=== PATIENT | female | born 1960 | race Two or more races ===

== ENCOUNTER 2021-06-01 15:15 | Outpatient (REF) | payer BC, SELFPAY ==
[2021-06-01 17:02] LABS: Appearance Urine CLEAR; Color Urine YELLOW; Glucose Urine UA NEG (NEG); Leukocyte Esterase Urine NEG (NEG); Nitrite Urine NEG (NEG); PH 5.5 (5.0-8.0); Specific Gravity - Urine 1.025 (1.005-1.025); Urine Blood 1+ (NEG); Urine Ketones NEG (NEG); Urine Protein NEG (NEG-TRACE)
[2021-06-01 17:07] LABS: Alanine Aminotransferase 17 U/L (0-31); Albumin Level 4.2 g/dL (3.5-5.0); Alkaline Phosphatase 101 U/L (39-117); Anion Gap 9 (12-20); Aspartate Amino Transferase 14 U/L (5-31); Bilirubin Total 0.5 mg/dL (0.0-1.0); Blood Urea Nitrogen 17 mg/dL (9-16); Calcium 9.7 mg/dL (8.4-10.2); Carbon Dioxide 32 mmol/L (22-29); Chloride 106 mmol/L (96-108); Cholesterol 176 mg/dL; Estimated Glomerular Filt Rate > 60; Glucose Fasting 94 mg/dL (60-99); HDL Cholesterol 55 mg/dL; LDL Cholesterol Calculated 104 mg/dl; Potassium 4.5 mmol/L (3.3-5.1); Sodium 142 mmol/L (135-145); Total Protein 6.9 g/dL (6.5-8.0); Triglycerides 89 mg/dL
[2021-06-01 17:27] LABS: Vitamin D 25-OH Total 37.2 ng/mL (>30)
[2021-06-01 17:53] LABS: Hematocrit 43.7 % (37.0-47.0); Hemoglobin 14.1 g/dl (12.0-16.0); Mean Corpuscular HGB Conc 32.3 g/dl (31.0-35.0); Mean Corpuscular Hemoglobin 29.8 pg (27.0-33.0); Mean Corpuscular Volume 92.4 fL (80.0-98.0); Mean Platelet Volume 9.3 fL (9.4-12.3); Platelet Count 246 X10*3/uL (160-400); Red Blood Count 4.73 X10*6/uL (4.20-5.50); Red Cell Distribution Width 13.8 % (11.0-16.0)
[2021-06-01 18:01] LABS: RBC Urine 0-2 /HPF (0); Squamous Epithelial Cell Urine 2+ /LPF; WBC Urine 0-2 /HPF (0-4)
== END 2021-06-01 15:16 | disposition home or self-care (01) ==
LOC: HO.HMGCLDS 15:15
PROVIDERS: PCP Internal Medicine; Visit Provider Internal Medicine
DX: Z00.00 Encounter for general adult medical examination without abnormal findings (principal); E78.5 Hyperlipidemia, unspecified; E03.9 Hypothyroidism, unspecified
CPT/HCPCS: 36415; 80053; 80061; 81001; 82306; 85027

== ENCOUNTER → 2022-09-17 07:59 | Outpatient (REF) | payer BC, SELFPAY ==
--- NOTE | 2022-09-17 08:08 | CA_ITS ---
Transthoracic Echocardiogram Patient (Last, First, Middle): Serena Dixon, Gender: Female Date of : 1960 Age: 62 Procedure Date: 09/17/2022 Procedure Type: Transthoracic Echocardiogram Location: OP Height: 165. cm Weight: 123.83 kg BSA: 2.26 m2 Heart Rate: 72 bpm BP: 105 / 70 mmHg Incident Manager: ARSALAN Referring MD: Shiela Haley MD Symptoms: R01.1 - Cardiac murmur, unspecified Study Quality: Fair ECG Rhythm: Sinus Conclusions: - The left ventricular systolic function is normal. The calculated ejection fraction is 61% by biplane method. - There is mildly decreased right ventricular systolic function. - No obvious valvular pathology seen on this study. Findings Left Ventricle Normal left ventricular cavity size. There is mildly increased left ventricular wall thickness. The left ventricular systolic function is normal. The calculated ejection fraction is 61% by biplane method. There is no evidence of regional wall motion abnormalities. Evidence suggests grade I (mild) diastolic dysfunction. Strain not reliable due to poor endocardial definition. Right Ventricle Normal right ventricular cavity size. There is mildly decreased right ventricular systolic function. Atria Both atria are normal in size. Aortic Valve There is a normal trileaflet aortic valve. There is no aortic valve stenosis. There is trace (trivial) aortic valve regurgitation. Mitral Valve The mitral valve appears normal. There is mild mitral valve regurgitation. There is no mitral valve stenosis. Pulmonic Valve The pulmonic valve is likely normal. Tricuspid Valve There is no tricuspid valve regurgitation. There is no evidence of pulmonary hypertension. Great Vessels The asc aorta is normal in size. Venous The inferior vena cava is normal in size and collapses greater than 50% with inspiration. Pericardium/Pleural Prominent epicardial adipose tissue noted. There is no evidence of pericardial effusion. Prior Study Comparison No prior study available for comparison. Recommendations, Care & Conclusions No obvious valvular pathology seen on this study. Measurements 2D Linear Measurements IVSd: 1.19 0.6-0.9/0.6-1.0 cm LVIDd: 3.88 3.9-5.3/4.2-5.9 cm LVIDd Index: 1.72 2.4-3.2/2.2-3.1 cm/m2 LVIDs: 3.01 2.0-3.6 cm LVPWd: 1.05 0.7-1.1 cm LA Diam: 3.50 2.7-3.8/3.0-4.0 cm LAIDs Index: 1.55 1.5-2.3 cm/m2 LV Mass: 177.64 67-162/88-224 g LV Mass Index: 78.60 43-95/49-115 g/m2 LVOT Diam: 1.80 3.0+(-)1.3 cm 2D Systolic Function EF 4C: 64.90 >55% EF 2C: 56.40 >55% EF BiP: 60.90 >55% Mitral Valve MV Pk E: 0.90 MV PK A: 0.91 MV Decel Time: 284.00 E/A: 1.00 E'Lateral: 8.05 E'Medial: 5.33 E/E' Med: 16.90 E/E' Lat: 11.20 PHT: 83.00 MVA PHT: 2.65 Decel [place]: 3.17 Aortic Valve AoV Pk Efren: 1.50 AoV Mn Efren: 1.06 AoV VTI: 0.33 AoV Pk Grad: 9.00 Aov Mn Grad: 5.00 KATHLEEN Cont.VTI: 2.10 LVOT LVOT Pk Efren: 1.29 LVOT Mn Efren: 0.88 LVOT VTI: 0.27 LVOT Pk Grad: 7.00 LVOT Mn Grad: 4.00 LVOT Diam: 1.80 LVOT Area: 2.54 Diastolic Function MV Pk E: 0.90 MV Pk A: 0.91 E/A: 1.00 E'Medial: 5.33 E/E' Med: 16.90 E' Laterial: 8.05 E/E' Lat: 11.20 Right Ventricle TAPSE (mm): 16.90 TVS' Efren: 8.92 Tricuspid Valve RA Press: 3.00 Great Vessels Aorta Sinus of Valsalva: 3.10 2.0-3.5 cm Ao Asc: 3.30 2.1-3.4 cm Ao Arch: 3.30 Pulmonary Valve PV Pk Efren: 1.09 Peak PV Grad: 5.00 Updated in Other Vendor System with Status of Final Wayne Rangel MD electronically signed on 09/19/2022 1:01:38 PM with status of Final
== END ==
LOC: HO.CARD 07:59
PROVIDERS: PCP Internal Medicine; Visit Provider Internal Medicine
DX: R01.1 Cardiac murmur, unspecified (principal)
CPT/HCPCS: 93306

== ENCOUNTER 2023-06-16 08:13 | Outpatient (AMB) | payer BC, SELFPAY ==
[2023-06-16 08:31] VITALS: BP 122/80; PULSE 80; TEMP 36.8; O2SAT 98
--- NOTE | 2023-06-16 08:31 | MHC.OFFWIV ---
Intake Vital Signs 06/16/23 08:31 Height 5 ft 8 in BP 122/80 Blood Pressure Location Lt brachial Position Sitting Pulse 80 Pulse Source Pulse Oximeter Temp 98.2 F Temp Source Oral Pulse Oximetry (%) 98 Oxygen Delivery Method Room Air Intake Visit Reasons: EP, bilateral ear blockage ([phone]) Intake Note: pt is here for c.o bilateral ear blockage since tuesday unable to cler ears on her own. Patient Tobacco Use Status: Former Tobacco user Allergies No Known Allergies Allergy (Verified 06/16/23 08:32) Medication List - Last Reconciled 06/16/23 by Margarette Stewart NP atorvastatin 20 mg PO BEDTIME carbamide peroxide 6.5% (Debrox) 5 drps otic (ears) BID 4 days cholecalciferol (vitamin D3) (Vitamin D3) 50 mcg PO DAILY levothyroxine 100 mcg PO DAILY Do you need a note to return to daycare/school/sports/work: No HPI HPI Comments History of Present Illness Details 63 y/o female presents to walk-in clinic with c/o bilateral ear blockage since Tuesday. Tried Debrox OTC with minimal improvement. Denies URI symptoms. FOR[facility]LY [facility] Medical History (Updated 09/02/22 @ 11:19 by Shiela Haley MD) Morbid obesity Osteoarthritis of knees, bilateral Tear of meniscus of left knee Heart murmur Colonoscopy refused Anxiety Hyperlipidemia Hypothyroidism Normal pelvic exam Annual physical exam Surgical History H/O section Social History Household Members Other:: lives with son 17 and daughter 21, works as post doc fellowship, Housing: House Patient Tobacco Use Status: Former Tobacco user e-Cigarette/Vaping Use: Never Used service: No Current occupational status: employed Cognitive needs: No Hearing needs: No Vision needs: Yes Review of Systems Const All systems reviewed & are unremarkable except as noted in HPI and below Physical Exam Vital Signs: Last Vital Signs Temp 98.2 F 06/16/23 08:31 Pulse 80 06/16/23 08:31 BP 122/80 06/16/23 08:31 Pulse Ox 98 06/16/23 08:31 Oxygen Delivery Method Room Air 06/16/23 08:31 HEENT Head: Yes normocephalic Ears: external ears normal, TM normal on the left and TM abnormal obstructed by cerumen on the right; not bulging, not bullous, not with effusion, not erythematous and with no fluid behind the TM General nose exam: Normal nares present Mouth: moist mucous membranes Throat: Yes posterior oropharynx normal Office Procedures Cerumen Removal From which ear canal was the cerumen removed: bilateral Removal: irrigation Notes: patient tolerated procedure well [id number] Irrigation/Lavage Assessment & Plan Assessment & Plan (1) Cerumen impaction: Code(s): H61.20 - Impacted cerumen, unspecified ear Qualifiers: Laterality: bilateral Qualified Code(s): H61.23 - Impacted cerumen, bilateral Plan: Right ear worse, impacted. After Irrigation some improvement. Left ear clear. Continue with debrox at home as Prescribed. Might consider ENT Medications: New carbamide peroxide 6.5% (Debrox) 5 TO 10 DROPS EACH EAR BID FOR 7 DAYS. 5 drps otic (ears) BID 4 days 15 mL 0RF Coding Level of Care Code Est Pt Level 3 (68191) Diagnoses Bilateral impacted cerumen H61.23 Laterality: bilateral CPT Codes Office Procedure - CPT: 62516-Dzs Irrigation/Lavage ([id number])
== END 2023-06-16 09:45 | disposition home or self-care (01) ==
PROVIDERS: PCP Internal Medicine; Visit Provider Nurse Practitioner Family
DX: H61.23 Impacted cerumen, bilateral (principal)
CPT/HCPCS: 69209; 99213